=== PATIENT | male | born 1990 | race Two or more races ===

== ENCOUNTER 2017-09-14 10:02 | Emergency (ER) | payer SELFPAY ==
[2017-09-14] MEDS ORDERED: ONDANSETRON PF 4 MG/2 ML VIAL. IV ONE (10:15)
[2017-09-14] MEDS ORDERED: KETOROLAC 30 MG/ML INJ. IV ONE (10:15)
[2017-09-14] MEDS ORDERED: IV NORMAL SALINE 1000ML BAG 1,000 ML IV ONE (10:15)
[2017-09-14 10:35] LABS: BILIRUBIN,URINE NEGATIVE (NEG); GLUCOSE,URINE NEGATIVE (NEG); NITRITE,URINE NEGATIVE (NEG); PROTEIN,URINE NEGATIVE (NEG-TRACE); UROBILINOGEN,URINE 0.2 mg/dL (0.2 mg/dL)
[2017-09-14 10:39] LABS: HEMATOCRIT 42.7 % (39.0-53.0); RED BLOOD COUNT 5.12 x10^6/uL (4.30-5.70); RED CELL DISTRIBUTION WIDTH 13.6 % (11.5-14.5); WHITE BLOOD COUNT 6.5 x10^3/uL (4.0-11.0)
[2017-09-14 10:42] LABS: CALCIUM 8.5 mg/dL (8.5-10.1); CREATININE 1.3 mg/dL (0.7-1.3); GFR 65.7; POTASSIUM 3.7 mmol/L (3.5-5.1)
--- NOTE | 2017-09-14 10:47 | PHYS DOC ---
Adult General Chief Complaint Chief Complaint: FLANK PAIN HPI HPI Patient is a 27 year old male presents the ED complaining of right flank pain times one day. Patient has a history of kidney stones. Discussed pain as sharp. Rates the pain as 9 out of 10. States the pain radiates from right flank to right lower abdomen. Denies dysuria, hematuria, nausea/vomiting, diarrhea, chest pain, shortness of breath or fever. Review of Systems Review of Systems Constitutional: Denies fever or chills [] Eyes: Denies change in visual acuity, redness, or eye pain [] HENT: Denies nasal congestion or sore throat [] Respiratory: Denies cough or shortness of breath [] Cardiovascular: No additional information not addressed in HPI [] GI: Denies abdominal pain, nausea, vomiting, bloody stools or diarrhea [] : Denies dysuria or hematuria [] Musculoskeletal: Denies joint pain [] Integument: Denies rash or skin lesions [] Neurologic: Denies headache, focal weakness or sensory changes [] Endocrine: Denies polyuria or polydipsia [] All other systems were reviewed and found to be within normal limits, except as documented in this note. Current Medications Current Medications Current Medications Medications (Trade) Dose Ordered Sig/Mendy Start Time Stop Time Status Last Admin Dose Admin Hydromorphone HCl (Dilaudid) 1 mg 1X ONCE 09/14/17 12:15 09/14/17 12:16 DC 09/14/17 11:56 1 MG Ketorolac Tromethamine (Toradol) 30 mg 1X ONCE 09/14/17 10:15 09/14/17 10:55 DC 09/14/17 11:32 30 MG Morphine Sulfate 2 mg 1X ONCE 09/14/17 11:15 09/14/17 11:16 DC 09/14/17 11:33 2 MG Ondansetron HCl (Zofran) 4 mg 1X ONCE 09/14/17 10:15 09/14/17 10:55 DC 09/14/17 11:33 4 MG Sodium Chloride 1,000 ml @ 1,000 mls/hr 1X ONCE 09/14/17 10:15 09/14/17 11:14 DC 09/14/17 11:32 1,000 MLS/HR Allergies Allergies Allergies Coded Allergies Type Severity Reaction Last Updated Verified No Known Drug Allergies 09/14/17 No Physical Exam Physical Exam Constitutional: Well developed, well nourished, no acute distress, non-toxic appearance. [] HENT: Normocephalic, atraumatic, bilateral external ears normal, oropharynx moist, no oral exudates, nose normal. [] Eyes: PERRLA, EOMI, conjunctiva normal, no discharge. [] Neck: Normal range of motion, no tenderness, supple, no stridor. [] Cardiovascular:Heart rate regular rhythm, no murmur [] Lungs & Thorax: Bilateral breath sounds clear to auscultation [] Abdomen: Bowel sounds normal, soft, no tenderness, no masses, no pulsatile masses. [] Skin: Warm, dry, no erythema, no rash. [] Back: No tenderness, MILD RIGHT CVA TENDERNESS. [] Extremities: No tenderness, no cyanosis, no clubbing, ROM intact, no edema. [] Neurologic: Alert and oriented X 3, normal motor function, normal sensory function, no focal deficits noted. [] Psychologic: Affect normal, judgement normal, mood normal. [] Current Patient Data Vital Signs Vital Signs Date Time Temp Pulse Resp B/P (MAP) Pulse Ox O2 Delivery O2 Flow Rate FiO2 09/14/17 11:57 72 18 114/71 (85) 99 Room Air 09/14/17 10:05 98.5 98.5 Lab Values Laboratory Tests Test 09/14/17 10:05 09/14/17 10:20 Urine Collection Type Unknown Urine Color Yellow Urine Clarity Clear Urine pH 6.0 Urine Specific Stone 1.020 Urine Protein Negative mg/dL (NEG-TRACE) Urine Glucose (UA) Negative mg/dL (NEG) Urine Ketones (Stick) Negative mg/dL (NEG) Urine Blood Moderate (NEG) Urine Nitrite Negative (NEG) Urine Bilirubin Negative (NEG) Urine Urobilinogen Dipstick 0.2 mg/dL (0.2 mg/dL) Urine Leukocyte Esterase Negative (NEG) Urine RBC 0 /HPF (0-2) Urine WBC 5-10 /HPF (0-4) Urine Squamous Epithelial Cells Occ /LPF Urine Bacteria 0 /HPF (0-FEW) Urine Hyaline Casts Occasional /HPF Urine Mucus Slight /LPF White Blood Count 6.5 x10^3/uL (4.0-11.0) Red Blood Count 5.12 x10^6/uL (4.30-5.70) Hemoglobin 14.0 g/dL (13.0-17.5) Hematocrit 42.7 % (39.0-53.0) Mean Corpuscular Volume 83 fL (79-100) Mean Corpuscular Hemoglobin 27 pg (25-35) Mean Corpuscular Hemoglobin Concent 33 g/dL (31-37) Red Cell Distribution Width 13.6 % (11.5-14.5) Platelet Count 270 x10^3/uL (140-400) Sodium Level 140 mmol/L (136-145) Potassium Level 3.7 mmol/L (3.5-5.1) Chloride Level 103 mmol/L (98-107) Carbon Dioxide Level 25 mmol/L (21-32) Anion Gap 12 (6-14) Blood Urea Nitrogen 16 mg/dL (8-26) Creatinine 1.3 mg/dL (0.7-1.3) Estimated GFR (Cockcroft-Gault) 65.7 BUN/Creatinine Ratio 12 (6-20) Glucose Level 111 mg/dL (70-99) H Calcium Level 8.5 mg/dL (8.5-10.1) Total Bilirubin 0.2 mg/dL (0.2-1.0) Aspartate Amino Transferase (AST) 16 U/L (15-37) Alanine Aminotransferase (ALT) 30 U/L (16-63) Alkaline Phosphatase 90 U/L (46-116) Total Protein 7.4 g/dL (6.4-8.2) Albumin 3.8 g/dL (3.4-5.0) Albumin/Globulin Ratio 1.1 (1.0-1.7) Lipase 96 U/L (73-393) Laboratory Tests 09/14/17 10:20 Laboratory Tests 09/14/17 10:20 EKG EKG [] Radiology/Procedures Radiology/Procedures PROCEDURE: CT ABDOMEN PELVIS WO CONTRAST CT abdomen and pelvis without contrast. History: Right flank pain, history of kidney stones CT scan of the abdomen and pelvis was done without contrast. Lung bases are clear. There is no effusion. Liver and spleen are unremarkable. There is no calcified gallstone. Pancreas was normal in appearance. There is a punctate calculus in the mid left kidney and a 8 mm calculus in the lower pole of the left kidney. There are punctate calculi in the right kidney. There is mild right hydronephrosis. There is an 8 mm calculus at the ureteropelvic junction on the right side. There is a second calculus in the proximal right ureter measuring 5 mm. There is no distal ureteral calculus. Bladder is unremarkable. There is increased stool in the rectum. Bowel pattern is normal. There is no adenopathy. Lumbar spine is in normal alignment. Impression: 1. Bilateral intrarenal calculi. 2. 8 mm calculus at the right ureteropelvic junction and 5 mm calculus in the proximal right ureter. 3. Increased stool in the rectum.[] Course & Med Decision Making Course & Med Decision Making Pertinent Labs and Imaging studies reviewed. (See chart for details) []Discussed lab and imaging findings with patient and family. Patient's pain resolved at this point. Vitals stable, no acute distress. On re-examination, abdomen is soft nontender nondistended. No peritoneal signs. Patient tolerating by mouth. Discussed transfer to [facility] for urology consultation. Patient refused. Discussed the probability that he will need intervention to remove the kidney stones. States he wants to go home and will follow-up with urology outpatient. urology states that as long as patients pain is controlled and he can take oral pain medications, he can follow-up outpatient. Provided contact information and education for follow-up. Discussed reasons to return to the ED. Patient understands agrees with plan. Family at bedside. Dragon Disclaimer Dragon Disclaimer This electronic medical record was generated, in whole or in part, using a voice recognition dictation system. Departure Departure Impression: Primary Impression: Kidney stone Disposition: 01 HOME, SELF-CARE Condition: IMPROVED Referrals: ANTHONY CHAUDHARY MD Patient Instructions: Kidney Stones Additional Instructions: [facility] [address] [address] [place] [address] Scripts Tamsulosin Hcl (FLOMAX) 0.4 Mg Cap.er.24h 1 CAP PO DAILY, #10 CAP 11 Refills Prov: LIANNE CELESTE 09/14/17 Ibuprofen (IBUPROFEN) 800 Mg Tablet 800 MG PO PRN Q6HRS Y for INFLAMMATION, #20 TAB Prov: LIANNE CELESTE 09/14/17 Ondansetron (ZOFRAN ODT) 4 Mg Tab.rapdis 1 TAB SL Q8HRS, #15 TAB Prov: LIANNE CELESTE 09/14/17 Ciprofloxacin Hcl (CIPRO) 500 Mg Tablet 1 TAB PO BID, #20 TAB Prov: LIANNE CELESTE 09/14/17 Oxycodone/Apap 5-325 (PERCOCET 5-325 MG TABLET) 1 Each Tablet 1-2 TAB PO Q4-6HRS, #12 TAB Prov: LIANNE CELESTE 09/14/17 LIANNE CELESTE Sep 14, 2017 10:47
[2017-09-14 10:48] LABS: ALBUMIN 3.8 g/dL (3.4-5.0); ALBUMIN/GLOBULIN RATIO 1.1 (1.0-1.7); TOTAL BILIRUBIN 0.2 mg/dL (0.2-1.0); TOTAL PROTEIN 7.4 g/dL (6.4-8.2)
[2017-09-14 10:54] LABS: BACTERIA,URINE 0 /HPF (0-FEW); RBC,URINE 0 /HPF (0-2); SQUAMOUS EPITHELIAL CELL,UR OCC /LPF
--- NOTE | 2017-09-14 11:12 | RAD ---
CT abdomen and pelvis without contrast. History: Right flank pain, history of kidney stones CT scan of the abdomen and pelvis was done without contrast. Lung bases are clear. There is no effusion. Liver and spleen are unremarkable. There is no calcified gallstone. Pancreas was normal in appearance. There is a punctate calculus in the mid left kidney and a 8 mm calculus in the lower pole of the left kidney. There are punctate calculi in the right kidney. There is mild right hydronephrosis. There is an 8 mm calculus at the ureteropelvic junction on the right side. There is a second calculus in the proximal right ureter measuring 5 mm. There is no distal ureteral calculus. Bladder is unremarkable. There is increased stool in the rectum. Bowel pattern is normal. There is no adenopathy. Lumbar spine is in normal alignment. Impression: 1. Bilateral intrarenal calculi. 2. 8 mm calculus at the right ureteropelvic junction and 5 mm calculus in the proximal right ureter. 3. Increased stool in the rectum. One or more of the following individualized dose reduction techniques were utilized for this examination: 1. Automated exposure control 2. Adjustment of the mA and/or kV according to patient size 3. Use of iterative reconstruction technique
[2017-09-14] MEDS ORDERED: MORPHINE SULFATE 2 MG/ML DISP.SYRIN. IV ONE (11:15)
[2017-09-14 11:57] VITALS: BP 114/71
[2017-09-14] MEDS ORDERED: ONDA4TAB10 SL (12:05)
[2017-09-14] MEDS ORDERED: IBUP-1060 PO (12:05)
[2017-09-14] MEDS ORDERED: OXYC-323 PO (12:05)
[2017-09-14] MEDS ORDERED: CIPR500T94 PO (12:05)
[2017-09-14] MEDS ORDERED: TAMS0.4C97 PO (12:05)
[2017-09-14] MEDS ORDERED: HYDROmorphone 2 MG/ML VIAL IV ONE (12:15)
== END 2017-09-14 13:05 | disposition home or self-care (01) ==
LOC: ER 10:02
DX: N13.2 Hydronephrosis with renal and ureteral calculous obstruction (principal); Z87.442 Personal history of urinary calculi
CPT/HCPCS: 36415; 74176; 80053; 81001; 83690; 85027; 96361; 96374; 96375; 99285; J1170; J1885; J2270; J2405; J7030